=== PATIENT | male | born 1995 | race Caucasian/White ===

== ENCOUNTER 2022-12-27 15:19 | Emergency (ER) | payer SELFPAY ==
--- NOTE | 2022-12-27 16:59 | RAD REPORT ---
EXAM DESCRIPTION: Tadeo Single View12/27/2022 4:03 pm CLINICAL HISTORY: CHEST PAIN COMPARISON: No comparisons TECHNIQUE: Portable AP view of the chest. FINDINGS: The lungs are clear. No pneumothorax or effusion. The cardiomediastinal contours are unrem arkable. IMPRESSION: No acute cardiopulmonary process.
[2022-12-27 17:14] LABS: Hematocrit 40.2 % (39.6-49.0); MCV 89.7 fL (80-100); RBC Red Blood Cell Count 4.47 M/uL (4.33-5.43)
[2022-12-27 17:30] LABS: Potassium 3.5 mEq/L (3.5-5.1); Troponin High Sensitivity 3.2 pg/mL (<58.9)
[2022-12-27] MEDS ORDERED: NA CHLORIDE 0.9% 1,000 ML ONE (17:51)
--- NOTE | 2022-12-27 18:15 | ER ---
Nurse's Notes [facility] Name: Cirilo Roach Age: 27 yrs Sex: Male : 1995 Arrival Date: 12/27/2022 Time: 15:19 Bed 20 Private MD: Diagnosis: Infectious mononucleosis, unspecified without complication Presentation: 12/27 15:30 Chief complaint: Patient states: his girlfriend had mono approx one month ago, and he ap3 started having congestion and fatigue yesterday. patient also reports he may have been running a fever as well. Coronavirus screen: Client presents with at least one sign or symptom that may indicate coronavirus-19. Ebola Screen: No symptoms or risks identified at this time. Initial Sepsis Screen: Does the patient meet any 2 criteria? HR > 90 bpm. Does the patient have a suspected source of infection? No. Patient's initial sepsis screen is negative. Risk Assessment: Do you want to hurt yourself or someone else? Patient reports no desire to harm self or others. Onset of symptoms was December 26, 2022. 15:30 Method Of Arrival: Ambulatory ap3 15:30 Acuity: DARIN 3 ap3 Triage Assessment: 15:32 General: Appears in no apparent distress. Behavior is calm, cooperative, appropriate ap3 for age. Pain: Complains of pain in generalized body aches. EENT: Reports nasal congestion nasal discharge. Neuro: Level of Consciousness is awake, alert, obeys commands, Oriented to person, place, time, situation. Cardiovascular: Patient's skin is warm and dry. Respiratory: Reports cough that is Airway is patent Respiratory effort is even, unlabored, Respiratory pattern is regular, symmetrical. Historical: - Allergies: 15:32 No Known Allergies; ap3 - PMHx: 15:32 None; ap3 - Immunization history:: Client reports having NOT received the Covid vaccine. - Social history:: Smoking status: Patient reports the use of cigarette tobacco products, smokes one-half pack cigarettes per day. Screenin:33 [facility] ED Fall Risk Assessment (Adult) History of falling in the last 3 months, ap3 including since admission No falls in past 3 months (0 pts). Abuse screen: Denies threats or abuse. Nutritional screening: No deficits noted. Tuberculosis screening: No symptoms or risk factors identified. Assessment: 16:54 General: Appears in no apparent distress. comfortable, Behavior is calm, cooperative, kc6 appropriate for age. Neuro: Grimaldo Agitation-Sedation Scale (RASS): 0 - Alert and Calm Level of Consciousness is awake, alert, obeys commands, Oriented to person, place, time, situation, Appropriate for age. Cardiovascular: Heart tones S1 S2 present Capillary refill < 3 seconds. Respiratory: Airway is patent Trachea midline Respiratory effort is even, unlabored, Respiratory pattern is regular, symmetrical. GI: No signs and/or symptoms were reported involving the gastrointestinal system. : No signs and/or symptoms were reported regarding the genitourinary system. EENT: No signs and/or symptoms were reported regarding the EENT system. Throat is clear with gag reflex present. Derm: No signs and/or symptoms reported regarding the dermatologic system. Skin is intact, Skin is pink, warm \T\ dry. Musculoskeletal: No signs and/or symptoms reported regarding the musculoskeletal system. Circulation, motion, and sensation intact. Capillary refill < 3 seconds, Range of motion: intact in all extremities. 17:45 Reassessment: Patient appears in no apparent distress at this time. No changes from kc6 previously documented assessment. Patient and/or family updated on plan of care and expected duration. Pain level reassessed. Patient is alert, oriented x 3, equal unlabored respirations, skin warm/dry/pink. Vital Signs: 15:30 BP 117 / 78; Pulse 101; Resp 17; Temp 99.5; Pulse Ox 100% ; Weight 68.04 kg; Height 6 ap3 ft. 0 in. ; 16:55 BP 125 / 80; Pulse 86; Resp 18 S; Pulse Ox 100% on R/A; kc6 17:46 BP 119 / 73; Pulse 84; Resp 16 S; Pulse Ox 100% on R/A; kc6 15:30 Body Mass Index 20.34 (68.04 kg, 182.88 cm) ap3 ED Course: 15:25 Patient arrived in ED. am2 15:26 Virginia Roach FNP-C is PHCP. kb 15:26 Sachin Jimenez MD is Attending Physician. kb 15:32 Triage completed. ap3 15:33 Arm band placed on left wrist. ap3 16:05 Chest Single View XRAY In Process Unspecified. EDMS 16:40 Cecily Tan, RN is Primary Nurse. kc6 16:54 Strep Sent. kc6 16:54 Troponin HS Sent. kc6 16:54 Basic Metabolic Panel Sent. kc6 16:54 CBC with Diff Sent. kc6 16:54 COVID-19 SARS RT PCR Sent. kc6 16:54 Flu Sent. kc6 16:54 [place] Screen Profile Sent. kc6 16:54 Inserted saline lock: 20 gauge in right antecubital area, using aseptic technique. kc6 Blood collected. 16:55 Patient has correct armband on for positive identification. Bed in low position. Call kc6 light in reach. Side rails up X 1. 18:24 No provider procedures requiring assistance completed. IV discontinued, intact, kc6 bleeding controlled, No redness/swelling at site. Pressure dressing applied. Administered Medications: 17:46 Drug: NS 0.9% IV 1000 ml Route: IV; Rate: 1000 ml; Site: right antecubital; kc6 18:24 Follow up: Response: No adverse reaction; IV Status: Completed infusion kc6 Medication: 18:25 VIS not applicable for this client. kc6 Outcome: 18:15 Discharge ordered by . kb 18:25 Discharged to home ambulatory. kc6 18:25 Condition: improved 18:25 Discharge instructions given to patient, Instructed on discharge instructions, follow up and referral plans. Demonstrated understanding of instructions, follow-up care. 18:25 Patient left the ED. kc6 Signatures: Dispatcher [employer] EDVirginia Lamar, SEBASTIAN CANALESP-Fernanda Penny Amanda RN RN ap3 Cecily Tan RN RN kc6
--- NOTE | 2022-12-27 18:15 | EDPHYS ---
Physician Documentation [facility] Name: Cirilo Roach Age: 27 yrs Sex: Male : 1995 Arrival Date: 12/27/2022 Time: 15:19 Bed 20 Private MD: ED Physician Sachin Jimenez HPI: 12/27 15:32 This 27 yrs old Male presents to ER via Unassigned with complaints of mono exposure, kb Doesn't Feel Right. 15:32 The patient or guardian reports flu symptoms, low-grade fever, myalgias. Onset: The kb symptoms/episode began/occurred yesterday. Severity of symptoms: At their worst the symptoms were moderate, in the emergency department the symptoms are unchanged. Modifying factors: The symptoms are alleviated by nothing, the symptoms are aggravated by nothing. Associated signs and symptoms: Pertinent positives: chest pain, fever, rhinorrhea, sore throat. The patient has not experienced similar symptoms in the past. The patient has not recently seen a physician. Historical: - Allergies: 15:32 No Known Allergies; ap3 - PMHx: 15:32 None; ap3 - Immunization history:: Client reports having NOT received the Covid vaccine. - Social history:: Smoking status: Patient reports the use of cigarette tobacco products, smokes one-half pack cigarettes per day. ROS: 15:31 Abdomen/GI: Negative for abdominal pain, nausea, vomiting, diarrhea, and constipation. kb 15:31 Constitutional: Positive for body aches, chills, fatigue, fever, malaise. 15:31 ENT: Positive for sinus congestion. 15:31 Cardiovascular: Positive for chest pain. 15:31 Respiratory: Positive for cough. 15:31 Neuro: Positive for headache. 15:31 All other systems are negative. Exam: 15:31 Constitutional: This is a well developed, well nourished patient who is awake, alert, kb and in no acute distress. Head/Face: Normocephalic, atraumatic. ENT: Moist Mucous membranes Cardiovascular: Regular rate and rhythm with a normal S1 and S2. No gallops, murmurs, or rubs. No pulse deficits. Respiratory: Respirations even and unlabored. No increased work of breathing. Talking in full sentences Abdomen/GI: Soft, non-tender. No distention Skin: Warm, dry with normal turgor. Normal color. MS/ Extremity: Pulses equal, no cyanosis. Neurovascular intact. Full, normal range of motion. Neuro: Awake and alert, GCS 15, oriented to person, place, time, and situation. Moves all extremities. Normal gait. 17:05 ECG was reviewed by the Attending Physician. kb Vital Signs: 15:30 BP 117 / 78; Pulse 101; Resp 17; Temp 99.5; Pulse Ox 100% ; Weight 68.04 kg; Height 6 ap3 ft. 0 in. ; 16:55 BP 125 / 80; Pulse 86; Resp 18 S; Pulse Ox 100% on R/A; kc6 17:46 BP 119 / 73; Pulse 84; Resp 16 S; Pulse Ox 100% on R/A; kc6 15:30 Body Mass Index 20.34 (68.04 kg, 182.88 cm) ap3 MDM: 15:26 Patient medically screened. kb 17:37 Differential Diagnosis: Other flu, covid, strep, mono, uri. Data reviewed: vital signs, kb nurses notes. Counseling: I had a detailed discussion with the patient and/or guardian regarding: the historical points, exam findings, and any diagnostic results supporting the discharge/admit diagnosis, lab results, radiology results, the need for outpatient follow up, a family practitioner, to return to the emergency department if symptoms worsen or persist or if there are any questions or concerns that arise at home. 05 15:31 Order name: [place] Screen Profile; Complete Time: 17:36 kb 12/27 15:31 Order name: Flu; Complete Time: 18:14 kb 12/27 15:31 Order name: COVID-19 SARS RT PCR; Complete Time: 17:48 kb 12/27 15:31 Order name: CBC with Diff; Complete Time: 17:27 kb 12/27 15:31 Order name: Basic Metabolic Panel; Complete Time: 17:36 kb 12/27 15:31 Order name: Troponin HS; Complete Time: 17:36 kb 12/27 15:32 Order name: Strep kb 12/27 18:17 Order name: Throat Culture EDDC 12/27 15:31 Order name: Chest Single View XRAY; Complete Time: 17:05 kb 12/27 15:31 Order name: EKG; Complete Time: 15:32 kb 12/27 15:31 Order name: IV Start; Complete Time: 16:54 kb 12/27 15:31 Order name: EKG - Nurse/Tech; Complete Time: 16:54 kb EC:05 Rate is 84 beats/min. Rhythm is regular. QRS [place] is Normal. WI interval is shortened kb at 110 msec. QRS interval is normal at 120 msec. QT interval is normal at 406 msec. Administered Medications: 17:46 Drug: NS 0.9% IV 1000 ml Route: IV; Rate: 1000 ml; Site: right antecubital; kc6 18:24 Follow up: Response: No adverse reaction; IV Status: Completed infusion kc6 Disposition Summary: 12/27/22 18:15 Discharge Ordered Location: Home Condition: Stable kb Diagnosis - Infectious mononucleosis, unspecified without complication kb Followup: kb - With: Emergency Department - When: As needed - Reason: Worsening of condition Followup: kb - With: Private Physician - When: 2 - 3 days - Reason: Recheck today's complaints, Continuance of care, Re-evaluation by your physician Discharge Instructions: - Discharge Summary Sheet kb - Infectious Mononucleosis kb Forms: - Work release form kb - Medication Reconciliation Form kb - Thank You Letter kb - Antibiotic Education kb - Prescription Opioid Use kb Signatures: Dispatcher [employer] Virginia Justice FNP-C FNP-Fernanda Moran RN RN ap3 Cecily Tan RN RN kc6
[2022-12-27 18:44] VITALS: TEMP 99.5; O2SAT 100
[2022-12-27 18:48] VITALS: BP 119/73
== END 2022-12-27 18:25 | disposition home or self-care (01) ==
LOC: ER 15:19
DX: B27.90 Infectious mononucleosis, unspecified without complication (principal); F17.210 Nicotine dependence, cigarettes, uncomplicated; Z20.822 Contact with and (suspected) exposure to COVID-19
CPT/HCPCS: 36415; 71045; 80048; 84484; 85025; 86308; 87070; 87081; 87804; 96360; 99284; J7030; U0003